=== PATIENT | male | born 1985 | race Caucasian/White ===

== ENCOUNTER 2018-05-26 10:23 | Inpatient (IN) | payer SELFPAY ==
[~2018-05-26] VITALS: Ht 180.3 cm; Wt 72.6 kg
[2018-05-26] MEDS ORDERED: ACETAMINOPHEN 325MG TABLET PO STA (11:13)
[2018-05-26] MEDS ORDERED: KETOROLAC 30MG/ML VIAL IV STA (11:13)
[2018-05-26] MEDS ORDERED: SODIUM CHLORIDE 0.9% 1000ML BAG (SEPSIS BOLUS) IV ONE (11:15)
[2018-05-26 12:14] LABS: HEMATOCRIT. 45.5 % (42.0-52.0); HEMOGLOBIN. 15.6 g/dL (14.0-18.0); MEAN CORPUSCULAR HEMOGLOBIN 31.7 pg (28.0-32.0); MEAN CORPUSCULAR VOLUME 92.4 fL (80.0-94.0); MEAN PLATELET VOLUME 8.6 fl (7.4-10.4); PLATELET 218 x1000/uL (130-400); RED BLOOD CELL COUNT 4.92 mill/uL (4.7-6.1); RED CELL DISTRIBUTION WIDTH 13.4 % (11.6-14.6)
[2018-05-26 12:21] LABS: PROTHROMBIN TIME 10.2 sec (9.1-11.1)
[2018-05-26 12:22] LABS: CHLORIDE 99 mEq/L (98-107)
[2018-05-26 12:34] LABS: ETHANOL BLOOD < 10 mg/dL
[2018-05-26 12:55] LABS: PLATELET ESTIMATE NORMAL
[2018-05-26] MEDS ORDERED: LEVOFLOXACIN 750MG PREMIX 150 ML IV ONE (13:45)
[2018-05-26 14:10] LABS: CLARITY URINE CLEAR (CLEAR); COLOR URINE YELLOW (YELLOW); KETONES URINE 1+ (NEGATIVE); LEUKOCYTE ESTERASE URINE NEGATIVE (NEGATIVE); NITRITE URINE NEGATIVE (NEGATIVE); OCCULT BLOOD URINE NEGATIVE (NEGATIVE); PH URINE 7.5 (4.5-8.0); PROTEIN URINE TRACE (NEGATIVE); SPECIFIC GRAVITY URINE 1.018 (1.005-1.030)
[2018-05-26 14:24] LABS: *AMPHETAMINES SCREEN URINE NEGATIVE (NEGATIVE); *BARBITURATES SCREEN URINE NEGATIVE (NEGATIVE); *BENZODIAZEPINES SCREEN URINE NEGATIVE (NEGATIVE); *COCAINE SCREEN URINE NEGATIVE (NEGATIVE); CANNABINOID URINE SCREEN PRESUMTIVE POSITIVE (NEGATIVE)
[2018-05-26 14:25] LABS: METHADONE URINE SCREEN NEGATIVE (NEGATIVE); OPIATES URINE SCREEN NEGATIVE (NEGATIVE); PHENCYCLIDINE URINE SCREEN NEGATIVE (NEGATIVE)
[2018-05-26 15:29] VITALS: BP 142/79
[2018-05-26 15:31] VITALS: BP 142/79
[2018-05-26] MEDS ORDERED: CLONIDINE 0.1MG TABLET PO PRN (16:15)
[2018-05-26] MEDS ORDERED: ONDANSETRON HCL 4MG/2ML INJ IV PRN (16:15)
[2018-05-26] MEDS ORDERED: DOCUSATE SODIUM 100MG CAPSULE PO PRN (16:15)
[2018-05-26] MEDS: DEXT 5%/0.45% NACL 1000ML 1,000 ML IV SCH (16:59)
[2018-05-26] MEDS: ACETAMINOPHEN 325MG TABLET PO PRN ×2 (17:59→20:33)
[2018-05-26] MEDS: GUAIFENESIN 200MG/10ML SUGAR FREE UDC PO PRN (17:59)
[2018-05-26] MEDS: KETOROLAC 15MG/ML VIAL IV PRN (19:56)
[2018-05-26 20:00] VITALS: BP 138/77
[2018-05-27] VITALS: BP 136/79
[2018-05-27] MEDS: KETOROLAC 15MG/ML VIAL IV PRN ×4 (01:47→20:16)
[2018-05-27 04:00] VITALS: BP 131/87
[2018-05-27] MEDS: DEXT 5%/0.45% NACL 1000ML 1,000 ML IV SCH ×3 (04:46→22:30)
[2018-05-27] MEDS: ACETAMINOPHEN 325MG TABLET PO PRN ×2 (04:46→16:48)
[2018-05-27 07:53] LABS: HEMATOCRIT. 38.8 % (42.0-52.0); MEAN CORPUSCULAR HEMOGLOBIN 31.3 pg (28.0-32.0); MEAN CORPUSCULAR VOLUME 93.4 fL (80.0-94.0); PLATELET 183 x1000/uL (130-400); RED BLOOD CELL COUNT 4.16 mill/uL (4.7-6.1); RED CELL DISTRIBUTION WIDTH 13.5 % (11.6-14.6)
[2018-05-27 08:02] VITALS: BP 137/94
[2018-05-27 08:19] LABS: BG BASE EXCESS 0.7 mmol/L (-2.0-2.0); BG CARBOXYHEMOGLOBIN 1.1 % (0.5-1.5); BG FRACTION INSPIRED OXYGEN 21; BG HCO3 ACT 24.4 mmol/L (22.0-26.0); BG METHEMOGLOBIN 0.4 % (0.0-1.5); BG OXYGEN SATURATION 95.9 % (92.0-98.5); BG OXYHEMOGLOBIN 94.5 % (94.0-97.0); BG PCO2 36.3 mmHg (35.0-45.0); BG PH 7.446 (7.350-7.450); BG PO2 74.7 mmHg (75.0-100.0); BG SAMPLE SITE LEFT RADIAL; BG TOTAL HEMOGLOBIN 13.4 g/dL (12.0-18.0); BG VENT MODE ROOM AIR
[2018-05-27 09:09] LABS: CHLORIDE 106 mEq/L (98-107)
[2018-05-27 11:27] VITALS: BP 133/78
[2018-05-27 13:30] LABS: PLATELET ESTIMATE NORMAL
[2018-05-27] MEDS ORDERED: LEVOFLOXACIN 500MG PREMIX 100 ML IV SCH (14:00)
[2018-05-27 16:00] VITALS: BP 117/84
[2018-05-27 20:00] VITALS: BP 144/81
[2018-05-27] MEDS: GUAIFENESIN 200MG/10ML SUGAR FREE UDC PO PRN (20:16)
[2018-05-28] VITALS: BP 139/84
[2018-05-28] MEDS: KETOROLAC 15MG/ML VIAL IV PRN (02:50)
[2018-05-28] MEDS: ACETAMINOPHEN 325MG TABLET PO PRN (02:50)
[2018-05-28] MEDS: GUAIFENESIN 200MG/10ML SUGAR FREE UDC PO PRN ×2 (02:50→10:08)
[2018-05-28 04:00] VITALS: BP 143/67
[2018-05-28 08:00] VITALS: BP 132/85
[2018-05-28 11:05] VITALS: BP 132/85
[2018-05-28 12:00] VITALS: BP 130/80
== END 2018-05-28 13:14 | disposition home or self-care (01) | DRG 720 ==
LOC: ER 10:23 → 8WST 13:54 → EDBEDREQ 14:00 → EDBEDREQSVC 14:00 → ENRESERV 14:06
PROVIDERS: ADMIT Hospitalist; ATTEND Hospitalist
DX: A41.9 Sepsis, unspecified organism (principal); J18.9 Pneumonia, unspecified organism; F12.90 Cannabis use, unspecified, uncomplicated; R65.20 Severe sepsis without septic shock; Z79.899 Other long term (current) drug therapy
CPT/HCPCS: 36415; 36600; 71045; 80305; 82375; 82805; 83605; 84145; 84484; 87070; 87804; 93005; 96374; 99291; G0482; J1885; J1956; J2405; J7030